=== PATIENT | female | born 1965 | race Caucasian/White ===

== ENCOUNTER 2017-01-30 22:31 | Observation (INO) ==
[2017-01-30 23:12] LABS: Basophils % 0.2 %; Eosinophils # 0.1 K/mcL (0.0-0.6); Eosinophils % 0.9 %; Hematocrit 45.4 % (35.3-44.9); Immature Granulocytes % 0.2 % (0-4); Lymphocytes # 2.6 K/mcL (0.6-4.6); Lymphocytes % 44.9 %; Mean Corpuscular Volume 90.8 fL (83.0-100.0); Mean Platelet Volume 9.8 fL (9.4-12.4); Monocytes # 0.3 K/mcL (0.0-1.3); Monocytes % 5.8 %; Neutrophils # 2.8 K/mcL (1.6-8.9); Platelet Count 265 K/mcL (140-400); Red Cell Distribution Width 12.3 % (11.5-14.5)
[2017-01-30 23:19] LABS: BUN/Creatinine Ratio 8 (6-26); Blood Urea Nitrogen 7 mg/dL (7-20); Calcium 9.9 mg/dL (8.6-10.8); Carbon Dioxide 25 mEq/L (19-29); Chloride 104 mEq/L (98-109); Glucose 79 mg/dL (70-99); Osmolality,Calculated 283 (280-300); Potassium 3.3 mEq/L (3.5-4.5); Sodium 138 mEq/L (136-145); eGFR For African Americans > 60 (> 60); eGFR For Non-African Americans > 60 (> 60)
[2017-01-31] MEDS ORDERED: Nitroglycerin 0.4 MG TAB.SUBL SL PRN (00:42)
[2017-01-31] MEDS ORDERED: Aspirin 81 MG TAB.CHEW PO ONE (00:42)
--- NOTE | 2017-01-31 00:45 | Emergency Department Note ---
Disposition Clinical Impression: Chest pain, rule out acute myocardial infarction Disposition: Admitted As Inpatient Condition: Fair Time of Disposition: 10:32 Chest Pain HPI - General Chief Complaint: ED Chest Pain Stated Complaint: HTN, CP Time Seen by Provider: 01/31/17 00:34 Source: patient Limitations: no limitations Vital Signs Reviewed: Yes Nursing Notes Reviewed: Yes - History of Present Illness HPI Narrative: Alert and oriented nontoxic appearing 51-year-old female presents for evaluation of substernal chest pain and elevated blood pressure readings that began at approximately 2100 hrs. yesterday evening. She states that this chest pain began at rest. She denies any alleviating factors. She states she has had elevated blood pressure readings at home all day yesterday, however " thought it was just mild anxiety". She states that the only medication she takes is carvedilol 3.125 mg twice daily. She denies any recent changes to her antihypertensive regimen. She describes her chest pain as a "squeezing", and rates it a 6 out of 10 on a 10 point scale. He states that this pain was accompanied by some diaphoresis upon symptom onset, however denies any nausea, vomiting, fever, cough, or other upper respiratory complaints. Pt complaint: chest pain, other (High blood pressure) Onset (ago): hour(s) (Approximately 2100 hrs. yesterday evening) Duration: constant Onset: during rest Pain Location: substernal Severity: moderate Severity scale (1-10): 6 Quality: other ("Squeezing") Pain Radiation: none Improves with: nothing Worsens with: nothing Associated symptoms: Reports: diaphoresis, palpitations, other (Hypertension) Treatments prior to arrival chest pain: none - Related Data Home Medications Medication Instructions Recorded Confirmed Alprazolam [Xanax] 2 mg PO QID 01/31/17 01/31/17 Carvedilol [Coreg] 25 mg PO BID 01/31/17 01/31/17 OxyCODONE/APAP 7.5/325 [Percocet 1 each PO Q6HR PRN 01/31/17 01/31/17 7.5/325 MG] Allergies Allergy/AdvReac Type Severity Reaction Status Date / Time No Known Allergies Allergy Verified 07/15/16 13:54 All systems ED: reviewed and negative except as stated. Constitutional: Denies: fever, chills, weakness, weight change Eyes: Denies: eye pain, eye discharge, vision change ENT ED: Denies: ear pain, throat pain, dental pain, hearing loss, epistaxis, congestion, dysphagia Cardiovascular: Reports: as per HPI, chest pain. Denies: palpitations, dyspnea on exertion, edema, syncope Respiratory: Denies: cough, dyspnea, wheezes, hemoptysis, stridor Gastrointestinal: Denies: abdominal pain, nausea, vomiting, diarrhea, constipation, hematemesis, melena, hematochezia Genitourinary: Denies: dysuria, frequency, hematuria, discharge Musculoskeletal: Denies: back pain, neck pain, arthralgia, myalgia Integumentary: Denies: rash, abrasion, lesions Neurological: Denies: headache, weakness, numbness, paresthesias, confusion, abnormal gait, vertigo Psychiatric: Denies: anxiety, depression, suicidal thoughts, homicidal thoughts , auditory hallucinations, visual hallucinations Endocrine: Denies: fatigue Hematological/Lymphatic: Denies: easy bleeding, easy bruising Allergic/Immunologic: Denies: facial swelling, urticaria Chest Pain PMH - Past Medical History Medical history: Reports: hypertension 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 Absent: nystagmus - ENT ENT exam: mucous membranes moist - Neck Neck exam: Present: normal inspection, full ROM, trachea midline - Chest Chest inspection: Present: normal inspection, symmetric chest wall rise - Respiratory Respiratory exam: Present: normal lung sounds bilaterally - Cardiovascular Cardiovascular exam: Present: regular rate, normal rhythm, normal heart sounds - Abdominal Exam Abdominal exam: Present: soft, Non-Tender, normal bowel sounds. Absent: tenderness, distention, guarding, rebound, rigidity - Extremities Exam Extremities exam: Present: normal inspection, full ROM. Absent: tenderness, pedal edema - Neurological Exam Neurological exam: Present: alert, oriented X3 - Psychiatric Psychiatric exam: Present: normal affect, normal mood - Skin Skin exam: Present: warm, dry, intact, normal color Course Vital Signs Temperature 98.0 F 01/30/17 22:32 Pulse Rate 70 01/30/17 22:32 Respiratory Rate 18 01/30/17 22:32 Blood Pressure 210/128 01/30/17 22:32 O2 Sat by Pulse Oximetry 99 01/30/17 22:32 Temperature 97.8 F 02/01/17 09:00 Pulse Rate 64 02/01/17 09:00 Respiratory Rate 16 02/01/17 09:00 Blood Pressure 184/98 02/01/17 09:07 O2 Sat by Pulse Oximetry 99 02/01/17 09:00 Oxygen Delivery Oxygen Delivery Room Air Chest Pain - Medical Records Medical records reviewed: Yes I reviewed the patient's medical records. - Lab Data Lab results reviewed: Yes I reviewed the patient's lab results. Result diagrams: 01/31/17 04:30 01/31/17 04:30 Lab Results 01/30/17 01/30/17 01/30/17 Range/Units 23:02 23:02 23:02 WBC 5.9 (4.3-11.1) K/mcL RBC 5.00 H (3.82-4.97) M/mcL Hgb 15.0 (11.5-15.4) g/dL Hct 45.4 H (35.3-44.9) % MCV 90.8 (83.0-100.0) fL MCH 30.0 (28.0-33.3) pg MCHC 33.0 (31.6-35.5) g/dL RDW 12.3 (11.5-14.5) % Plt Count 265 (140-400) K/mcL MPV 9.8 (9.4-12.4) fL Immature Gran % 0.2 (0-4) % Seg Neutrophils % 48.0 % Lymphocytes % 44.9 % Monocytes % 5.8 % Eosinophils % 0.9 % Basophils % 0.2 % Neutrophils # 2.8 (1.6-8.9) K/mcL Lymphocytes # 2.6 (0.6-4.6) K/mcL Monocytes # 0.3 (0.0-1.3) K/mcL Eosinophils # 0.1 (0.0-0.6) K/mcL Basophils # 0.0 (0.0-0.2) K/mcL Sodium 138 (136-145) mEq/L Potassium 3.3 L (3.5-4.5) mEq/L Chloride 104 (98-109) mEq/L Carbon Dioxide 25 (19-29) mEq/L BUN 7 (7-20) mg/dL Creatinine 0.92 (0.57-1.11) mg/dL Est GFR ( Amer) > 60 (> 60) Est GFR (Non-Af Amer) > 60 (> 60) BUN/Creatinine Ratio 8 (6-26) Glucose 79 (70-99) mg/dL Calculated Osmolality 283 (280-300) Calcium 9.9 (8.6-10.8) mg/dL Troponin I 0.00 (0-0.03) ng/mL Urine Color (Yellow) Urine Clarity (Clear) Urine pH (5.0-8.0) pH Units Ur Specific [place] (1.010-1.025) Urine Protein (Neg-Trace) mg/dL Urine Glucose (UA) (Normal) mg/dL Urine Ketones (Negative) mg/dL Urine Blood (Negative) Urine Nitrite (Negative) Urine Bilirubin (Negative) Urine Urobilinogen (Normal) mg/dL Ur Leukocyte Esterase (Negative) Ur Culture Indicated? (NO) 01/31/17 Range/Units 00:42 WBC (4.3-11.1) K/mcL RBC (3.82-4.97) M/mcL Hgb (11.5-15.4) g/dL Hct (35.3-44.9) % MCV (83.0-100.0) fL MCH (28.0-33.3) pg MCHC (31.6-35.5) g/dL RDW (11.5-14.5) % Plt Count (140-400) K/mcL MPV (9.4-12.4) fL Immature Gran % (0-4) % Seg Neutrophils % % Lymphocytes % % Monocytes % % Eosinophils % % Basophils % % Neutrophils # (1.6-8.9) K/mcL Lymphocytes # (0.6-4.6) K/mcL Monocytes # (0.0-1.3) K/mcL Eosinophils # (0.0-0.6) K/mcL Basophils # (0.0-0.2) K/mcL Sodium (136-145) mEq/L Potassium (3.5-4.5) mEq/L Chloride (98-109) mEq/L Carbon Dioxide (19-29) mEq/L BUN (7-20) mg/dL Creatinine (0.57-1.11) mg/dL Est GFR ( Amer) (> 60) Est GFR (Non-Af Amer) (> 60) BUN/Creatinine Ratio (6-26) Glucose (70-99) mg/dL Calculated Osmolality (280-300) Calcium (8.6-10.8) mg/dL Troponin I (0-0.03) ng/mL Urine Color Yellow (Yellow) Urine Clarity Clear (Clear) Urine pH 6.0 (5.0-8.0) pH Units Ur Specific [place] 1.011 (1.010-1.025) Urine Protein Negative (Neg-Trace) mg/dL Urine Glucose (UA) Normal (Normal) mg/dL Urine Ketones Negative (Negative) mg/dL Urine Blood Negative (Negative) Urine Nitrite Negative (Negative) Urine Bilirubin Negative (Negative) Urine Urobilinogen Normal (Normal) mg/dL Ur Leukocyte Esterase Negative (Negative) Ur Culture Indicated? NO (NO) - Radiology Data Radiology results reviewed: Yes I reviewed the patient's radiology results. - EKG Data EKG attestation: Yes I reviewed and interpreted this EKG. EKG results narrative: EKG reviewed by Dr. Mcfarland as well. EKG shows a sinus rhythm with a nonspecific T -wave abnormality at a rate of 71 bpm. IA interval 167, QRS duration 72, QT/ QTc intervals 375/398. No ectopy noted. No STEMI. Attestation Statement - Attestation Attestation: I, Niall Mcfarland, examined this patient and my medical decision-making was reviewed with the PICTURE COPYIST/PA/Advanced Practice Nurse/Resident Physician. I agree with the documented findings, disposition and treatment plan as described except to the extent set forth below. 51-year-old female presents to the emergency department for concerns of chest pain and elevated blood pressure. Patient states that she has not had any changes to her blood pressure medications. She describes the chest pain is substernal that does not radiate. Initial blood pressure in emergency department was 210 systolic. Patient given IV medications for blood pressure emergency department. She will be admitted to the hospital for further care and evaluation. Initial troponin was negative.
[2017-01-31 03:15] LABS: Bilirubin,Urine Negative (Negative); Blood,Urine Negative (Negative); Clarity,Urine Clear (Clear); Color,Urine Yellow (Yellow); Glucose,Urine (UA) Normal (Normal); Ketones,Urine Negative (Negative); Leukocyte Esterase,Urine Negative (Negative); Nitrite,Urine Negative (Negative); Protein,Urine Negative (Neg-Trace); Specific Gravity,Urine 1.011 (1.010-1.025); Urobilinogen,Urine Normal (Normal)
[2017-01-31] MEDS ORDERED: Naloxone 0.4 MG/ML INJ IVP PRN (03:20)
--- NOTE | 2017-01-31 03:27 | Internal Med History&Physical ---
Date of Encounter: 01/31/17 Time of Encounter: 03:25 Assessment and Plan (1) Hypertensive urgency Current visit: Yes Status: Acute Increase home coreg to 6.25 BID. Trend trop - trop leak suspect due to demand from HTN (2) Chest pain Current visit: Yes Status: Acute trend trop. consider stress testing when BP improved and controlled Qualifiers: Chest pain type: other chest pain Qualified Code(s): R07.89 - Other chest pain; R07.8 - Other chest pain (3) Anxiety Current visit: Yes Status: Acute takes xanax QID (4) Migraine Current visit: Yes Status: Acute uses excedrine at home Qualifiers: Qualified Code(s): G43.909 - Migraine, unspecified, not intractable, without status migrainosus Internal Medicine - H&P: HPI Chief complaint: Chest pain History of present illness: Mrs. Dorie Thompson is a 51-year-old female who presents with 1) chest pain and 2 ) hypertensive urgency. She developed chest pain while at home watching TV at around 8-9 pm, described it as squeezing in nature, rated 6-7/10, without radiation. That lasted for several hours prior to arrival to the ED where her pain improved with nitro x 2. On arrival she was found to be hypertensive with BP 210/210 and with a trop leak 0.04. On review, her risk factors for smoking now 1/2 PPD, HTN and a family hx of coronary disease. She is also under active investigation by neurology for "spells" described as going into a rage on occasions that is follow by long peroids of sleep before not being able to recall what had happen. EKG reviewed by self with rate 71, NSR. CT head in the ED pending at time of admission Past Med Surg Social Fam HX - Past Medical History Medical history: hypertension - Social History Smoking Status: Current every day smoker Smokeless Tobacco Status: No Alcohol use: rarely Drug use: none Internal Medicine - H&P: Meds Ibuprofen [Motrin] 800 mg PO Q8HR PRN #40 tablet 06/23/15 [Rx] Percocet 5-325 mg Tablet 06/23/15 [History] Xanax 0.25 MG Tablet 06/23/15 [History] Cyclobenzaprine [Flexeril] 10 mg PO TID #15 tablet 07/29/15 [Rx] methylPREDNISolone [Medrol] 4 mg PO BIDWM #1 packet 07/29/15 [Rx] Propranolol LA (24 HR) [Inderal LA] 160 mg PO HS #14 cap.sa.24h 07/15/16 [Rx] Allergies No Known Allergies Allergy (Verified 07/15/16 13:54) All Systems PM: A 10-system review of systems was performed and is negative for pertinent findings except as documented above in the HPI. Review of systems: 14 point review of systems reviewed as best as possible given presentation. Pertinent positive or negative as per HPI or otherwise reviewed as negative - Constitutional Vitals: Temp Pulse Resp BP Pulse Ox 98.0 F 70 18 210/128 99 01/30/17 22:32 01/30/17 22:32 01/30/17 22:32 01/30/17 22:32 01/30/17 22:32 Exam: General - AAO x 3 Psych - Appropriate affect/speech. No agitation Eyes - JAMES. Eye lids intact. No scleral icterus ENT - Oral mucosa pink, dentition intact. External ear clear/dry/intact. No thyromegaly Lymphatics - No cervical/inguinal lympadenopathy Neuro - No gross peripheral or central neuro deficits with intact CN 2-12 exam Heart - Sinus. RRR. S1 and S2 present. No added HS/murmurs appreciated. No elevated JVD appreciated. No calf swellings/erythema Lung - Adequate air entry b/l, No crackes/wheezes appreciated GI - Soft, non-tender. No hepatosplenomegaly/ascites. BS+ - No CVA/suprapubic tenderness or palpable bladder distension Skin - Intact. No rash/petechiae/ecchymosis. Warm extremities MSK - Joints with normal ROM. No joint swellings Internal Med - H&P Results - Labs CBC & Chem 7: 01/30/17 23:02 01/30/17 23:02 Labs: Short CBC 01/30/17 Range/Units 23:02 WBC 5.9 (4.3-11.1) K/mcL Hgb 15.0 (11.5-15.4) g/dL Hct 45.4 H (35.3-44.9) % Plt Count 265 (140-400) K/mcL Neutrophils # 2.8 (1.6-8.9) K/mcL BMP 08/13/17 23:02 Sodium 138 Potassium 3.3 L Chloride 104 Carbon Dioxide 25 BUN 7 Creatinine 0.92 Glucose 79 Calcium 9.9 Cardiac Enzymes 01/30/17 Range/Units 23:02 Troponin I 0.00 (0-0.03) ng/mL Urine 01/31/17 Range/Units 00:42 Urine Color Yellow (Yellow) Urine Clarity Clear (Clear) Urine pH 6.0 (5.0-8.0) pH Units Ur Specific [place] 1.011 (1.010-1.025) Urine Protein Negative (Neg-Trace) mg/dL Urine Glucose (UA) Normal (Normal) mg/dL - Impressions ITS Impressions Head CT 01/31/17 00:46 IMPRESSION: No evidence of acute intracranial abnormality. D/ / Henrik Webster MD / Henrik Webster MD Interpreting Provider: Henrik Webster MD Chest X-Ray 01/31/17 22:52 IMPRESSION: No acute cardiopulmonary disease. D/ / Saurabh Portillo MD / Saurabh Portillo MD Interpreting Provider: Saurabh Portillo MD
[2017-01-31] MEDS: *HR* OxyCODONE/APAP 5/325 TABLET PO PRN (04:44)
[2017-01-31 05:06] LABS: BUN/Creatinine Ratio 8 (6-26); Blood Urea Nitrogen 7 mg/dL (7-20); Calcium 10.1 mg/dL (8.6-10.8); Carbon Dioxide 30 mEq/L (19-29); Chloride 101 mEq/L (98-109); Glucose 73 mg/dL (70-99); Osmolality,Calculated 285 (280-300); Potassium 3.4 mEq/L (3.5-4.5); Sodium 139 mEq/L (136-145); eGFR For African Americans > 60 (> 60); eGFR For Non-African Americans > 60 (> 60)
[2017-01-31 06:13] LABS: Hematocrit 47.5 % (35.3-44.9); Hemoglobin 15.7 g/dL (11.5-15.4); Mean Corpuscular HGB Conc 33.1 g/dL (31.6-35.5); Mean Corpuscular Hemoglobin 29.8 pg (28.0-33.3); Mean Corpuscular Volume 90.3 fL (83.0-100.0); Mean Platelet Volume 10.5 fL (9.4-12.4); Platelet Count 288 K/mcL (140-400); Red Blood Count 5.26 M/mcL (3.82-4.97); Red Cell Distribution Width 12.4 % (11.5-14.5)
[2017-01-31] MEDS: ALPRAZolam 0.5 MG TABLET PO SCH ×4 (09:08→20:06)
[2017-01-31] MEDS: Ibuprofen 800 MG TABLET PO PRN ×2 (11:57→20:06)
--- NOTE | 2017-01-31 14:42 | Electrocardiograph Report ---
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
--- NOTE | 2017-01-31 18:50 | Event Note ---
Date of Encounter: 01/31/17 Time of Encounter: 17:00 Patient seen and examined. On examination, patient resting supine in bed. Patient currently denies chest pain or shortness of breath. She states that she had a headache earlier today but states it is better now. She states she is feeling better now that she was able to get some sleep. Head CT negative. Chest x-ray negative. Urinalysis negative. Mild hypokalemia improving. Troponins negative 2. Normotensive. Stress test tomorrow morning, anticipate discharge if negative. Of note, patient is requesting a copy of her medical records, she will have to go to medical records upon discharge. She denies further concerns. She states she is eating well. ITS Impressions Head CT 01/31/17 00:46 IMPRESSION: No evidence of acute intracranial abnormality. D/ / 01/31/2017 07:24:13 Henrik Webster MD / cherylyer Interpreting Provider: Henrik Webster MD Chest X-Ray 01/31/17 22:52 IMPRESSION: No acute cardiopulmonary disease. D/ / Saurabh Portillo MD / Saurabh Portillo MD Interpreting Provider: Saurabh Portillo MD
[2017-02-01] MEDS ORDERED: Regadenoson 0.4 MG/5 ML SYRINGE IVP ONE (05:44)
[2017-02-01] MEDS: ALPRAZolam 0.5 MG TABLET PO SCH ×2 (09:13→12:48)
[2017-02-01] MEDS: Ibuprofen 800 MG TABLET PO PRN (09:37)
[2017-02-01 11:10] VITALS: BP 160/82
[2017-02-01] MEDS: *HR* OxyCODONE/APAP 5/325 TABLET PO PRN (11:10)
--- NOTE | 2017-02-01 12:01 | Nuclear Medicine Stress Report ---
Regadenoson Nuclear Stress Name: Dorie Thompson Date of Study: 02/01/2017 Date: 1965 Ht: 61.0 in Medical Record#: [id number] Age: 51 Wt: 131.0 lb Gender: Female Order #: [id number] Location: [facility] Room: Supervising Provider: Prakash Ruff CNP Reading Physician: Livia Fountain DO Ordering Physician: Trudi Saleem CNP Primary Care Physician: Alexandro Chavarria MD Stress Technologist: Tye De Leon CRT Junior Oracle Dba: Valentin Ayoub Indications: Chest Pain Impression: Perfusion imaging was negative for ischemia or infarct. No appreciable change in pharmacologic ECG with stress. Gated EF > 70%. History: Hypertension History of Smoking Stress Test Summary: Stress Test Type: Pharmacologic Regadenoson 0.4mg/5ml given IV Baseline Information: Initial Heart Rate: 57 Blood Pressure: 124/60 Stress Information: Test Terminated Due to (primary): As per protocol Maximum Blood Pressure: 138/80 Maximum Heart Rate: 95 Percent Maximum Heart Rate Achieved: 55 Double Product: [id number] METS Reached: 1 Symptoms: No chest symptoms Nuclear Summary: SPECT myocardial perfusion imaging using Tc99m Sestamibi given intravenously was performed at rest and following cardiac stress testing. The resting images were obtained following initial dose of 11 mCi. Following stress an additional dose of 33 mCi was given at peak exercise or 30 seconds post regadenoson infusion. Medication Given: Time Medication Dose Units Route Findings: Stress Note * Resting ECG demonstrated sinus bradycardia with nonspecific diffuse ST-T abnormalities. * No appreciable change in pharmacologic ECG with stress. * No arrhythmias were noted during stress. * Patient had no chest pain during stress. Hemodynamic responses * Normal hemodynamic responses to pharmacologic stress. Study Quality * Study quality is good. Gated EF > 70% * Gated EF > 70%. Left Ventricle * The left ventricle is not dilated. TID * No evidence of transient ischemic dilatation. Lung Uptake * There is no evidence of increase lung uptake. NORMALS * Normal wall motion. * Normal segmental perfusion in stress. * Normal Segmental Perfusion in rest. Updated by Livia Fountain on 02/01/2017 11:54:14 AM electronically signed on 02/01/2017 11:54:48 AM with status of Final
--- NOTE | 2017-02-01 13:48 | Discharge Summary ---
Date of Encounter: 02/01/17 Time of Encounter: 09:45 - Discharge Diagnosis (1) Chest pain, rule out acute myocardial infarction Priority: Primary Status: Acute Comments: Atypical chest pain - ACS ruled out Nuclear stress test - perfusion imaging negative for ischemia or infarct, gated EF > 70% Chest x-ray - no acute process CT brain - no acute intracranial abnormality EKG - sinus rhythm with no acute ST-T changes Troponin - negative 4 Continue aspirin, statin, advised about good blood pressure control (2) Hypertensive urgency Priority: Primary Status: Acute Comments: Hypertensive urgency - now improved Continue carvedilol and lisinopril/HCTZ Advised to check blood pressure daily and to be compliant with medications Follow-up with primary care physician regularly (3) Anxiety Priority: Secondary Status: Chronic Comments: Continue Xanax at home (4) Migraine Priority: Secondary Status: Chronic Comments: Stable, continue home meds Qualifiers: Migraine type: without aura Status migrainosus presence: without status migrainosus Intractability: not intractable Qualified Code(s): G43.009 - Migraine without aura, not intractable, without status migrainosus - Discharge Medications Prescriptions: Aspirin 81 mg PO DAILY #30 tab.chew Lisinopril-HCTZ 20-12.5 [Prinzide 20-12.5] 1 each PO DAILY #30 tablet Nicotine Patch [Nicoderm] 21 mg TD DAILY #30 patch.td24 Simvastatin [Zocor] 20 mg PO HS #30 tablet Home Medications: Alprazolam [Xanax] 2 mg PO QID 01/31/17 [History] Carvedilol [Coreg] 25 mg PO BID 01/31/17 [History] OxyCODONE/APAP 7.5/325 [Percocet 7.5/325 MG] 1 each PO Q6HR PRN 01/31/17 [ History] Aspirin 81 mg PO DAILY #30 tab.chew 02/01/17 [Rx] Ibuprofen [Motrin] 800 mg PO Q8HR PRN tab 02/01/17 [Rx] Lisinopril-HCTZ 20-12.5 [Prinzide 20-12.5] 1 each PO DAILY #30 tablet 02/01/17 [ Rx] Nicotine Patch [Nicoderm] 21 mg TD DAILY #30 patch.td24 02/01/17 [Rx] Simvastatin [Zocor] 20 mg PO HS #30 tablet 02/01/17 [Rx] Allergies/Adverse Reactions: Allergies No Known Allergies Allergy (Verified 07/15/16 13:54) Procedures/tests Complete & Pending: Procedures Performed prior 72 hours Category Date Time Status NM ilia perf SPECT multi [NM] Routine Exams 02/01/17 07:00 Taken SP pharm nuclear stress Routine Y 02/01/17 07:00 Completed Date of admission: 01/31/17 03:48 Primary care physician: Alexandro Chavarria MD Anticipated date of discharge: 02/01/17 - Patient Status Disposition: Home, Self-Care Condition: Good Overall status at discharge: patient is back to baseline - Discharge Instructions Instructions: Chronic Hypertension (DC), Anxiety (DC) Follow Up With: Alexandro Chavarria MD [Primary Care Provider] - 02/11/17 10:20 am - Diet and Activity Activity: increase activity as tolerated Diet: advance to your usual diet Hospital course: Ms. Thompson is a 51 year old female with past medical history of hypertension. She presented to the ED with complaints of chest pain. She was also found to have hypertensive urgency when she initially presented. Her risk factors include smoking and hypertension family history of coronary artery disease. Patient did not have any other complaints. Patient also mentioned that she was being evaluated by neurology for spells where she goes into a rage on occasions that is followed along. Sleep and not being able to recall what happened. Initial EKG shows normal sinus rhythm with no acute ST-T changes. CT of the brain done initially did not show any acute intracranial process. Patient was started on carvedilol. She was on IV hydralazine as needed. Chest x-ray did not show any acute process. Nuclear stress test was done and is negative for ischemia or infarct and indeed an EF is greater than 70%. Troponins negative 4. Patient is being discharged on aspirin and statin for primary prevention and is also being started on lisinopril/HCTZ. She has been advised about good blood pressure control. Her hypertensive urgency is now improved. She has been advised to check her blood pressure daily and advised to be compliant with medication and also advised to follow-up with her primary care physician regularly. Patient did not have any other acute events, the patient during her stay in the hospital. She is tolerating oral diet well and ambulate well. She and her friend have been explained about her condition and plan of care in detail. They understood and agreed. No unanswered questions. Patient is being discharged in stable condition. - Time Spent with Patient Total time spent providing and/or coordinating discharge services: Less than 30 minutes - Constitutional Vitals: Temp Pulse Resp BP Pulse Ox 98.0 F 74 16 160/82 98 02/01/17 10:32 02/01/17 10:32 02/01/17 10:32 02/01/17 11:03 02/01/17 10:32 General appearance: Present: cooperative, A&O X 3, pleasant, no acute distress, answers questions appropriately - Head Head exam: Present: atraumatic - Eye Eye exam: Present: EOMI - ENT ENT exam: Present: mucous membranes moist - Respiratory Respiratory exam: Present: CTAB. Absent: rales, rhonchi, wheezes, tachypnea - Cardiovascular Cardiovascular exam: Present: RRR, +S1, +S2 - GI/Abdominal GI/Abdominal exam: Present: soft. Absent: distended, firm, guarding, tenderness - Extremities Exam Extremities exam: Present: radial pulses palpable and symmetrical. Absent: cyanotic, pedal edema - Neurological Exam Neurological exam: Present: alert, oriented X3, no focal deficits. Absent: facial droop, speech deficit
--- NOTE | 2017-02-03 14:42 | Electrocardiograph Report ---
[address] [place], [place] [address] Test Date: 2017-02-01 Pat Name: Dorie Thompson Department: 113 Room: 3B46 Gender: F Ladderman: [id number] : 1965 Requested By: Trudi Saleem Order Number: [id number] Reading MD: Simone Junior MD Measurements Intervals [place] Rate: 60 P: 36 GA: 165 QRS: 58 QRSD: 67 T: 21 QT: 415 QTc: 417 Interpretive Statements SINUS RHYTHM Electronically Signed On 02-03-2017 14:40:34 EDT by Simone Junior MD
== END 2017-02-01 14:48 | disposition home or self-care (01) ==
LOC: EMEROO 22:31 → 3BNU 22:31
PROVIDERS: ADMIT Internal Medicine; ATTEND Nurse Practitioner Family

== ENCOUNTER 2020-11-11 15:47 | Observation (INO) ==
[2020-11-11 17:04] LABS: Basophils % 0.3 %; Eosinophils % 0.4 %; Hematocrit 38.9 % (35.3-44.9); Hemoglobin 13.6 g/dL (11.5-15.4); Immature Granulocytes % 0.4 % (0-4); Lymphocytes # 1.6 K/mcL (0.6-4.6); Lymphocytes % 22.5 %; Mean Corpuscular Hemoglobin 29.5 pg (28.0-33.3); Mean Corpuscular Volume 84.4 fL (83.0-100.0); Mean Platelet Volume 9.9 fL (9.4-12.4); Monocytes # 0.6 K/mcL (0.0-1.3); Monocytes % 8.4 %; Neutrophils # 4.8 K/mcL (1.6-8.9); Platelet Count 374 K/mcL (140-400); Red Blood Count 4.61 M/mcL (3.82-4.97); Red Cell Distribution Width 12.1 % (11.5-14.5)
[2020-11-11 17:18] LABS: INR 1.2; Prothrombin Time 13.7 Seconds (9.4-12.1)
[2020-11-11 17:29] LABS: Alanine Aminotransferase 12 Units/L (7-52); Albumin 3.7 g/dL (3.5-5.7); Alkaline Phosphatase 113 Units/L (34-104); Aspartate Amino Transferase 15 Units/L (13-39); BUN/Creatinine Ratio 33 (6-26); Bilirubin,Total 0.5 mg/dL (0.3-1.0); Blood Urea Nitrogen 51 mg/dL (6-20); Calcium 9.9 mg/dL (8.6-10.3); Carbon Dioxide 27 mEq/L (23-29); Chloride 97 mEq/L (98-107); Globulin 3.6 g/dL (2.4-3.5); Glucose 126 mg/dL (70-105); Osmolality,Calculated 297 (280-300); Potassium 2.5 mEq/L (3.5-5.1); Sodium 136 mEq/L (136-145); Total Protein 7.3 g/dL (6.4-8.9); Troponin I < 0.03 ng/mL (< 0.04); eGFR For African Americans 42 (> 60); eGFR For Non-African Americans 35 (> 60)
[2020-11-11 18:10] LABS: Adenovirus Not Detected (Not Detect); Bordetella Pertussis Not Detected (Not Detect); Chlamydophila pneumoniae Not Detected (Not Detect); Coronavirus 229E Not Detected (Not Detect); Coronavirus HKU1 Not Detected (Not Detect); Coronavirus NL63 Not Detected (Not Detect); Coronavirus OC43 Not Detected (Not Detect); Human Metapneumovirus Not Detected (Not Detect); Human Rhinovirus/Enterovirus Not Detected (Not Detect); Influenza A Subtype 2009 H1 Not Detected (Not Detect); Influenza B Not Detected (Not Detect); Mycoplasma pneumoniae Not Detected (Not Detect); Parainfluenza Virus 1 Not Detected (Not Detect); Parainfluenza Virus 2 Not Detected (Not Detect); Parainfluenza Virus 3 Not Detected (Not Detect); Parainfluenza Virus 4 Not Detected (Not Detect); Respiratory Syncytial Virus Not Detected (Not Detect); SARS-CoV-2 Not Detected (Not Detect)
[2020-11-11] MEDS ORDERED: Lidocaine 1% 20 ML MDV IVPB ONE (18:15)
[2020-11-11] MEDS ORDERED: 0.9 % Sodium Chloride 1,000 ML ONE (18:23)
[2020-11-11] MEDS ORDERED: Ondansetron 4 MG/2 ML VIAL IVP PRN (22:23)
[2020-11-11] MEDS ORDERED: Melatonin 3 MG TABLET PO PRN (22:23)
[2020-11-11] MEDS ORDERED: Acetaminophen 325 MG TABLET PO PRN (22:23)
[2020-11-11] MEDS ORDERED: Naloxone 0.4 MG/ML INJ IVP PRN (22:23)
[2020-11-11 23:30] LABS: Calcium 9.1 mg/dL (8.6-10.3); Potassium 3.7 mEq/L (3.5-5.1)
[2020-11-12] MEDS ORDERED: 0.9 % Sodium Chloride 1,000 ML IVC ONE (01:52)
[2020-11-12] MEDS ORDERED: Albuterol 2.5 MG/3 ML NEBULIZER IH PRN (02:16)
[2020-11-12] MEDS ORDERED: Azithromycin 500 MG in 0.9 % Sodium Chloride 250 ML IVPB SCH (03:00)
[2020-11-12 05:41] LABS: Hematocrit 34.8 % (35.3-44.9); Mean Corpuscular HGB Conc 33.3 g/dL (31.6-35.5); Mean Corpuscular Hemoglobin 28.9 pg (28.0-33.3); Mean Corpuscular Volume 86.8 fL (83.0-100.0); Mean Platelet Volume 9.4 fL (9.4-12.4); Platelet Count 354 K/mcL (140-400); Red Blood Count 4.01 M/mcL (3.82-4.97); Red Cell Distribution Width 12.3 % (11.5-14.5)
[2020-11-12 05:42] LABS: Hemoglobin 11.6 g/dL (11.5-15.4); White Blood Count 15.1 K/mcL (4.3-11.1)
[2020-11-12 06:03] LABS: Albumin 3.4 g/dL (3.5-5.7); Albumin/Globulin Ratio 1.1 (1.1-2.2); Bilirubin,Total 0.5 mg/dL (0.3-1.0); Calcium 9.2 mg/dL (8.6-10.3); Magnesium 1.7 mg/dL (1.6-2.6); Phosphorous 1.3 mg/dL (2.7-4.5); Potassium 3.1 mEq/L (3.5-5.1); Total Protein 6.4 g/dL (6.4-8.9)
[2020-11-12] MEDS ORDERED: Potassium Chloride Elixir 20 MEQ/15 ML UDC PO ONE (07:24)
[2020-11-12] MEDS ORDERED: Potassium Chloride 20 MEQ, Lidocaine 1% 2 ML in 0.9 % Sodium Chloride 250 ML IVPB ONE (08:36)
[2020-11-12] MEDS ORDERED: predniSONE 20 MG TABLET PO SCH (09:00)
[2020-11-12] MEDS: Ipratropium/Albuterol Neb 3 ML IH SCH ×3 (10:58→15:49)
[2020-11-12 14:13] VITALS: BP 146/83
[2020-11-12 15:13] LABS: BUN/Creatinine Ratio 33 (6-26); Blood Urea Nitrogen 35 mg/dL (6-20); Calcium 9.5 mg/dL (8.6-10.3); Carbon Dioxide 26 mEq/L (23-29); Chloride 109 mEq/L (98-107); Glucose 152 mg/dL (70-105); Osmolality,Calculated 301 (280-300); Potassium 3.9 mEq/L (3.5-5.1); Sodium 140 mEq/L (136-145); eGFR For African Americans > 60 (> 60); eGFR For Non-African Americans 54 (> 60)
== END 2020-11-12 17:13 | disposition home or self-care (01) ==
LOC: 3ANU 15:47 → EMEROOARM 15:47 → 3ANU 20:55
PROVIDERS: ADMIT Family Medicine; ATTEND Family Medicine